=== PATIENT | female | born 2000 | race American Indian/Alaskan Native ===

== ENCOUNTER 2022-12-07 20:44 | Emergency (ER) | payer BC, MEDICAID ==
[2022-12-07] MEDS ORDERED: Ketorolac 30 MG/ML SDV IM ONE (21:00)
[2022-12-07] MEDS ORDERED: Amoxicillin 500 MG Cap PO ONE (21:00)
[2022-12-07] MEDS ORDERED: Lidocaine 2% Viscous Solution 15 ML UD PO ONE (21:01)
[2022-12-07] MEDS ORDERED: Acetaminophen 500 MG Tab PO ONE (21:01)
== END 2022-12-07 21:15 | disposition home or self-care (01) ==
LOC: FB.ED 20:44
DX: K04.7 Periapical abscess without sinus (principal)
CPT/HCPCS: 96372; 99282; A9270; J1885